=== PATIENT | male | born 1960 | race Asian ===

== ENCOUNTER → 2017-06-09 | Day surgery (SDC) | payer BC ==
[~2017-06-09] MED LIST: LIDOCAINE 1% PF 2 ML VIAL. ID; LIDOCAINE 2% PF Vial for OR 5 ML VIAL.; MIDAZOLAM HCL/PF 2 MG/2 ML VIAL. IV; PROPOFOL 40 ML IV; fentaNYL PF VIAL 100 MCG/2 ML VIAL IV
[2017-06-09] MEDS: IV RINGERS,LACTATED 1000ML 1,000 ML IV (13:00)
== END | disposition home or self-care (01) ==
LOC: ENDOS 12:47
DX: Z09 Encounter for follow-up examination after completed treatment for conditions other than malignant neoplasm (principal); Z86.010 Personal history of colon polyps; D12.4 Benign neoplasm of descending colon; K62.1 Rectal polyp
CPT/HCPCS: 45380; 88305; J2704